=== PATIENT | female | born 1960 | race Caucasian/White ===

== ENCOUNTER 2017-08-31 09:16 | Inpatient (IN) | payer BC ==
[~2017-08-31] VITALS: Ht 157.5 cm; Wt 83.9 kg
[2017-08-31 09:24] VITALS: BP_SYST 122
[2017-08-31] MEDS ORDERED: KETOROLAC TROMETHAMINE 60 MG/2 ML VIAL IM ONE (10:00)
[2017-08-31 10:13] LABS: EOSINOPHILS # (AUTO) 0.2 K/uL (0.0-0.4); EOSINOPHILS % (AUTO) 3.2 % (0.0-4.0); HEMATOCRIT 42.2 % (36-48); HEMOGLOBIN 13.6 g/dL (12.0-16.0); LYMPHOCYTES # (AUTO) 1.8 K/uL (1.0-5.5); LYMPHOCYTES % (AUTO) 23.5 % (20.5-51.5); MEAN CORPUSCULAR HEMOGLOBIN 27 pg (27-31); MEAN CORPUSCULAR HGB CONC 32 % (32-36); MEAN CORPUSCULAR VOLUME 85 fL (79.0-98.0); MONOCYTES # (AUTO) 0.6 K/uL (0.0-1.0); PLATELET COUNT (AUTO) 298 K/uL (130-430); RED BLOOD CELL COUNT(AUTO) 4.98 MIL/uL (4.2-6.2); RED CELL DISTRIBUTION WIDTH 14.8 % (9.0-15.0); WHITE BLOOD COUNT (AUTO) 7.5 K/uL (4.8-10.8)
[2017-08-31 10:15] LABS: BASOPHILS % (AUTO) 0.2 % (0.0-2.0); NEUTROPHILS # (AUTO) 4.9 K/uL (1.8-7.7); NEUTROPHILS % (AUTO) 65.1 % (40.0-70.0)
[2017-08-31 10:17] LABS: CALCIUM 9.4 mg/dL (8.4-11.0); CREATININE 1.12 mg/dL (0.55-1.30); POTASSIUM 3.3 mmol/L (3.5-5.1)
[2017-08-31 10:22] LABS: ALBUMIN 4.1 g/dL (3.4-4.8); TOTAL BILIRUBIN 1.6 mg/dL (0.0-1.0)
[2017-08-31] MEDS ORDERED: TEMA30CA5 PO (11:36)
[2017-08-31] MEDS ORDERED: SIMV20TA2 PO (11:36)
[2017-08-31] MEDS ORDERED: TRAM50TA92 PO (11:36)
[2017-08-31] MEDS ORDERED: OMEP40CA33 PO (11:36)
[2017-08-31] MEDS ORDERED: RANI-362 PO (11:36)
[2017-08-31] MEDS ORDERED: GABA-531 PO ×2 (11:36)
[2017-08-31] MEDS ORDERED: HYDR-3109 PO (11:36)
[2017-08-31] MEDS ORDERED: CITA40TA22 PO (11:36)
[2017-08-31] MEDS ORDERED: NAPR-238 PO (11:36)
[2017-08-31 14:01] VITALS: BP_SYST 129
[2017-08-31] MEDS ORDERED: POTASSIUM CHLORIDE 30 MEQ in NS 250 ML IV ONE (14:45)
[2017-08-31] MEDS ORDERED: FAMOTIDINE 20 MG TABLET PO ONE (14:45)
[2017-08-31] MEDS: MORPHINE 4 MG/ML INJ. SYRINGE IVP PRN ×2 (15:18→20:23)
[2017-08-31] MEDS: ONDANSETRON HCL 4 MG/2 ML VIAL IVP PRN (15:18)
[2017-08-31 15:21] VITALS: BP_SYST 147
[2017-08-31] MEDS: KCL 20 mEq in NS 1000 mL 1,000 ML IV SCH (16:15)
[2017-08-31 17:11] VITALS: BP_SYST 147
[2017-08-31] MEDS ORDERED: TEMAZEPAM 15 MG CAPSULE PO SCH (19:30)
[2017-08-31 20:00] VITALS: BP_SYST 129
[2017-08-31] MEDS: FAMOTIDINE 20 MG TABLET PO SCH (20:22)
[2017-08-31] MEDS: GABAPENTIN 300 MG CAPSULE PO SCH (20:22)
[2017-08-31] MEDS ORDERED: GABAPENTIN 300 MG CAPSULE PO SCH (21:00)
[2017-09-01] VITALS: BP_SYST 110
[2017-09-01] MEDS: KCL 20 mEq in NS 1000 mL 1,000 ML IV SCH ×2 (03:26→13:50)
[2017-09-01 05:25] LABS: ANION GAP 7 (5-15); CALCIUM 8.5 mg/dL (8.4-11.0); CHLORIDE 107 mmol/L (98-107); CREATININE 0.92 mg/dL (0.55-1.30); GLUCOSE 77 mg/dL (70-99); POTASSIUM 4.4 mmol/L (3.5-5.1); SODIUM SERUM 143 mmol/L (136-145); UREA NITROGEN, BLOOD 14 mg/dL (8-21)
[2017-09-01 05:27] LABS: INR 1.1 (0.8-1.2); PROTHROMBIN TIME 10.7 SECS (9.5-12.5)
[2017-09-01] MEDS: MORPHINE 4 MG/ML INJ. SYRINGE IVP PRN (05:27)
[2017-09-01 05:36] LABS: ALANINE AMINOTRANSFERASE 416 U/L (12-78); ALBUMIN 3.2 g/dL (3.4-4.8); AMYLASE 49 U/L (0-100); ASPARTATE AMINOTRANSFERASE 159 U/L (10-37); LIPASE 156 U/L (73-393); TOTAL BILIRUBIN 0.9 mg/dL (0.0-1.0)
[2017-09-01 05:37] LABS: BASOPHILS # (AUTO) 0.1 K/uL (0.0-0.2); BASOPHILS % (AUTO) 0.9 % (0.0-2.0); EOSINOPHILS # (AUTO) 0.4 K/uL (0.0-0.4); EOSINOPHILS % (AUTO) 5.1 % (0.0-4.0); HEMATOCRIT 35.4 % (36-48); HEMOGLOBIN 12.1 g/dL (12.0-16.0); LYMPHOCYTES # (AUTO) 3.1 K/uL (1.0-5.5); LYMPHOCYTES % (AUTO) 46.8 % (20.5-51.5); MEAN CORPUSCULAR HEMOGLOBIN 29 pg (27-31); MEAN CORPUSCULAR HGB CONC 34 % (32-36); MEAN CORPUSCULAR VOLUME 85 fL (79.0-98.0); MONOCYTES # (AUTO) 0.6 K/uL (0.0-1.0); MONOCYTES % (AUTO) 8.4 % (1.7-9.3); NEUTROPHILS # (AUTO) 2.7 K/uL (1.8-7.7); NEUTROPHILS % (AUTO) 38.8 % (40.0-70.0); PLATELET COUNT (AUTO) 217 K/uL (130-430); RED BLOOD CELL COUNT(AUTO) 4.18 MIL/uL (4.2-6.2); RED CELL DISTRIBUTION WIDTH 14.9 % (9.0-15.0); WHITE BLOOD COUNT (AUTO) 6.9 K/uL (4.8-10.8)
[2017-09-01 06:29] LABS: TOTAL IRON BIND. CAPACITY 207 ug/dL (250-450)
[2017-09-01 06:32] LABS: GFR AFRICAN AMERICAN 81 mL/min (>90)
[2017-09-01 06:33] LABS: ACETAMINOPHEN < 1 ug/mL (1-30)
[2017-09-01 08:00] VITALS: BP_SYST 123
[2017-09-01] MEDS ORDERED: CITALOPRAM HYDROBROMIDE 20 MG TABLET PO SCH (09:00)
[2017-09-01] MEDS ORDERED: GABAPENTIN 300 MG CAPSULE PO SCH (09:00)
[2017-09-01 11:50] VITALS: BP_SYST 125
[2017-09-01] MEDS: FAMOTIDINE 20 MG TABLET PO SCH ×2 (13:48→21:24)
[2017-09-01] MEDS: GABAPENTIN 300 MG CAPSULE PO SCH ×2 (13:49→21:24)
[2017-09-01] MEDS: CITALOPRAM HYDROBROMIDE 20 MG TABLET PO SCH (13:49)
[2017-09-01] MEDS: ACETAMINOPHEN 650 MG/20.3 ML UDC PO PRN (16:34)
[2017-09-01 16:50] VITALS: BP_SYST 134
[2017-09-01 19:33] VITALS: BP_SYST 120
[2017-09-02] MEDS: KCL 20 mEq in NS 1000 mL 1,000 ML IV SCH ×3 (00:15→21:05)
[2017-09-02] MEDS: MORPHINE 4 MG/ML INJ. SYRINGE IVP PRN ×3 (00:15→17:51)
[2017-09-02 00:18] VITALS: BP_SYST 118
[2017-09-02 06:22] LABS: BASOPHILS # (AUTO) 0.1 K/uL (0.0-0.2); BASOPHILS % (AUTO) 0.8 % (0.0-2.0); EOSINOPHILS # (AUTO) 0.4 K/uL (0.0-0.4); EOSINOPHILS % (AUTO) 5.4 % (0.0-4.0); HEMATOCRIT 35.4 % (36-48); HEMOGLOBIN 11.6 g/dL (12.0-16.0); LYMPHOCYTES # (AUTO) 3.2 K/uL (1.0-5.5); LYMPHOCYTES % (AUTO) 45.7 % (20.5-51.5); MEAN CORPUSCULAR HEMOGLOBIN 28 pg (27-31); MEAN CORPUSCULAR HGB CONC 33 % (32-36); MEAN CORPUSCULAR VOLUME 86 fL (79.0-98.0); MONOCYTES # (AUTO) 0.6 K/uL (0.0-1.0); MONOCYTES % (AUTO) 8.3 % (1.7-9.3); NEUTROPHILS # (AUTO) 2.9 K/uL (1.8-7.7); NEUTROPHILS % (AUTO) 39.8 % (40.0-70.0); PLATELET COUNT (AUTO) 215 K/uL (130-430); RED BLOOD CELL COUNT(AUTO) 4.13 MIL/uL (4.2-6.2); RED CELL DISTRIBUTION WIDTH 15.1 % (9.0-15.0); WHITE BLOOD COUNT (AUTO) 7.2 K/uL (4.8-10.8)
[2017-09-02 06:37] LABS: INR 1.1 (0.8-1.2)
[2017-09-02 06:50] LABS: CALCIUM 8.7 mg/dL (8.4-11.0); CREATININE 0.82 mg/dL (0.55-1.30); POTASSIUM 4.6 mmol/L (3.5-5.1)
[2017-09-02 07:01] LABS: ALBUMIN 3.2 g/dL (3.4-4.8); TOTAL BILIRUBIN 0.7 mg/dL (0.0-1.0)
[2017-09-02 07:51] VITALS: BP_SYST 143
[2017-09-02 08:06] LABS: HEPATITIS A AB, IgM Negative (Negative); HEPATITIS B CORE AB, IgM Negative (Negative); HEPATITIS B SURFACE AG Negative (Negative)
[2017-09-02] MEDS: GABAPENTIN 300 MG CAPSULE PO SCH ×2 (09:00→21:04)
[2017-09-02] MEDS: FAMOTIDINE 20 MG TABLET PO SCH ×2 (09:00→21:03)
[2017-09-02] MEDS: CITALOPRAM HYDROBROMIDE 20 MG TABLET PO SCH (09:00)
[2017-09-02 09:38] LABS: BILIRUBIN,URINE NEGATIVE (NEGATIVE); BLOOD, URINE NEGATIVE (NEGATIVE); CLARITY/URINE CLEAR (CLEAR); COLOR,URINE YELLOW (YELLOW); GLUCOSE,URINE NEGATIVE (NEGATIVE); KETONES,URINE NEGATIVE (NEGATIVE); LEUKOCYTE ESTERASE ,URINE NEGATIVE (NEGATIVE); NITRITE, URINE NEGATIVE (NEGATIVE); PROTEIN URINE NEGATIVE (NEGATIVE); UROBILINOGEN,URINE 0.2 (0.2-1.0)
[2017-09-02] MEDS ORDERED: IOHEXOL 50 ML IV ONE (12:08)
[2017-09-02] MEDS ORDERED: LR 1,000 ML IV SCH (12:30)
[2017-09-02] MEDS ORDERED: METOCLOPRAMIDE HCL 10 MG/2 ML VIAL IVP PRN (12:30)
[2017-09-02] MEDS ORDERED: MORPHINE 4 MG/ML INJ. SYRINGE IVP PRN ×3 (12:30)
[2017-09-02 12:31] VITALS: BP_SYST 142
[2017-09-02] MEDS ORDERED: MORPHINE 4 MG/ML INJ. SYRINGE ONE (13:02)
[2017-09-02] MEDS ORDERED: MORPHINE 4 MG/ML INJ. SYRINGE IVP ONE (15:00)
[2017-09-02 15:08] LABS: ANTI NUCLEAR AB WITH REFLEX Negative (Negative)
[2017-09-02 16:00] VITALS: BP_SYST 129
[2017-09-02] MEDS: ONDANSETRON HCL 4 MG/2 ML VIAL IVP PRN (17:51)
[2017-09-02 18:07] VITALS: BP_SYST 129
[2017-09-02 19:15] VITALS: BP_SYST 119
[2017-09-02] MEDS: ACETAMINOPHEN 650 MG/20.3 ML UDC PO PRN (23:56)
[2017-09-03 01:03] VITALS: BP_SYST 94
[2017-09-03] MEDS: KCL 20 mEq in NS 1000 mL 1,000 ML IV SCH ×2 (05:30→15:17)
[2017-09-03 05:59] LABS: ALPHA-1-ANTITRYPSIN, S 104 mg/dL (90-200)
[2017-09-03 07:00] LABS: BASOPHILS % (AUTO) 0.6 % (0.0-2.0); EOSINOPHILS # (AUTO) 0.4 K/uL (0.0-0.4); EOSINOPHILS % (AUTO) 4.8 % (0.0-4.0); HEMATOCRIT 34.4 % (36-48); HEMOGLOBIN 11.4 g/dL (12.0-16.0); LYMPHOCYTES # (AUTO) 2.7 K/uL (1.0-5.5); LYMPHOCYTES % (AUTO) 36.6 % (20.5-51.5); MEAN CORPUSCULAR HEMOGLOBIN 28 pg (27-31); MEAN CORPUSCULAR HGB CONC 33 % (32-36); MEAN CORPUSCULAR VOLUME 86 fL (79.0-98.0); MONOCYTES # (AUTO) 0.6 K/uL (0.0-1.0); MONOCYTES % (AUTO) 7.8 % (1.7-9.3); NEUTROPHILS # (AUTO) 3.7 K/uL (1.8-7.7); NEUTROPHILS % (AUTO) 50.2 % (40.0-70.0); PLATELET COUNT (AUTO) 221 K/uL (130-430); RED BLOOD CELL COUNT(AUTO) 4.02 MIL/uL (4.2-6.2); RED CELL DISTRIBUTION WIDTH 15.4 % (9.0-15.0); WHITE BLOOD COUNT (AUTO) 7.4 K/uL (4.8-10.8)
[2017-09-03 07:15] LABS: CALCIUM 8.8 mg/dL (8.4-11.0); CREATININE 0.89 mg/dL (0.55-1.30); POTASSIUM 4.9 mmol/L (3.5-5.1); TOTAL BILIRUBIN 0.5 mg/dL (0.0-1.0)
[2017-09-03 08:00] VITALS: BP_SYST 123
[2017-09-03] MEDS: FAMOTIDINE 20 MG TABLET PO SCH (08:49)
[2017-09-03] MEDS: GABAPENTIN 300 MG CAPSULE PO SCH (08:49)
[2017-09-03] MEDS: CITALOPRAM HYDROBROMIDE 20 MG TABLET PO SCH (08:49)
[2017-09-03] MEDS: MORPHINE 4 MG/ML INJ. SYRINGE IVP PRN (10:28)
[2017-09-03 11:43] VITALS: BP_SYST 132
[2017-09-03] MEDS ORDERED: SEVOFLURANE 15 MIN GAS INH ONE (11:45)
[2017-09-03] MEDS ORDERED: ONDANSETRON HCL 4 MG/2 ML VIAL IVP ONE (11:45)
[2017-09-03] MEDS ORDERED: MIDAZOLAM HCL 5 MG/5 ML VIAL IVP ONE (11:45)
[2017-09-03] MEDS ORDERED: PROPOFOL 200MG/ 20ML VIAL (DIPRIVAN) IV ONE (11:45)
[2017-09-03] MEDS ORDERED: LR 1,000 ML IV.SOLN IV ONE (11:45)
[2017-09-03] MEDS ORDERED: SUCCINYLCHOLINE CHLORIDE 20 MG/ML(QUELICIN) IVP ONE (11:45)
[2017-09-03] MEDS ORDERED: fentaNYL CITRATE/PF 100 MCG/2 ML AMP IVP ONE (11:45)
[2017-09-03 16:13] VITALS: BP_SYST 155
[2017-09-03] MEDS ORDERED: FAMO20TA8 PO (16:28)
[2017-09-03] MEDS ORDERED: METO-290 PO (16:29)
[2017-09-03 17:08] VITALS: BP_SYST 138
[2017-09-04 08:05] LABS: ANTI-SMOOTH MUSCLE AB 11 Units (0-19)
== END 2017-09-03 16:50 | disposition home or self-care (01) | DRG 446 ==
LOC: SED 09:16 → STU 13:35
PROVIDERS: ADMIT Internal Medicine; ATTEND Internal Medicine
PROC: 0FC98ZZ Extirpation of Matter from Common Bile Duct, Via Natural or Artificial Opening Endoscopic (ICD-10-PCS; principal; 2017-09-02 10:55)
DX: K80.50 Calculus of bile duct without cholangitis or cholecystitis without obstruction (principal); E11.9 Type 2 diabetes mellitus without complications; E66.9 Obesity, unspecified; E78.5 Hyperlipidemia, unspecified; E87.6 Hypokalemia; F32.9 Major depressive disorder, single episode, unspecified; G89.4 Chronic pain syndrome; M54.2 Cervicalgia; M54.9 Dorsalgia, unspecified; Z68.33 Body mass index [BMI] 33.0-33.9, adult; Z90.49 Acquired absence of other specified parts of digestive tract
CPT/HCPCS: 36415; 71045; 74181; 76000; 76700-TC; 80053; 80074; 81003; 82103; 82150-TC; 82977-TC; 83516; 83540-TC; 83550-TC; 83690-TC; 84443-TC; 85025; 85610-TC; 85730-TC; 86038; 87081; 93005; 96372; 99285; C1769; G0480; J0330; J1885; J2250; J2270; J2405; J2704; J2765; J3010; J3480; J7050; J7120; Q9967